=== PATIENT | male | born 1940 | race Caucasian/White ===

== ENCOUNTER 2017-08-01 15:56 | Emergency (ER) | payer MEDICARE, MEDICAID ==
[~2017-08-01] VITALS: Ht 180.3 cm; Wt 79.4 kg
[2017-08-01 16:33] VITALS: BP 169/89
[2017-08-01] MEDS ORDERED: HYDROcodone-ACET 10/325MG TAB PO ONE (17:15)
[2017-08-01] MEDS ORDERED: NEOMYCIN-BACITRACIN-POLYM UNITDOSE PKG TOP OINT TOP ONE (17:15)
== END 2017-08-01 17:50 | disposition home or self-care (01) ==
LOC: ER 15:56 → EDBD 15:56 → ER 17:50
DX: S11.90XA Unspecified open wound of unspecified part of neck, initial encounter (principal); I10 Essential (primary) hypertension; R10.9 Unspecified abdominal pain; R42 Dizziness and giddiness; Z79.01 Long term (current) use of anticoagulants; Z86.711 Personal history of pulmonary embolism; V43.52XA Car driver injured in collision with other type car in traffic accident, initial encounter; Y93.89 Activity, other specified; Y92.89 Other specified places as the place of occurrence of the external cause; Y99.8 Other external cause status
CPT/HCPCS: 70450; 72125

== ENCOUNTER 2017-08-04 14:36 | Emergency (ER) | payer MEDICARE, MEDICAID ==
[~2017-08-04] VITALS: Ht 170.2 cm; Wt 78.0 kg
[2017-08-04 15:07] VITALS: BP 136/73
== END 2017-08-04 15:56 | disposition home or self-care (01) ==
LOC: ER 14:52
DX: S40.212D Abrasion of left shoulder, subsequent encounter (principal); S80.811D Abrasion, right lower leg, subsequent encounter; I10 Essential (primary) hypertension; V89.2XXD Person injured in unspecified motor-vehicle accident, traffic, subsequent encounter

== ENCOUNTER 2017-11-16 09:19 | Day surgery (SDC) | payer MEDICARE, MEDICAID ==
[2017-11-15 11:37] LABS: Basophils # (auto) 0 uL; Basophils % (auto) 0.8 % (0.0-2.0); Eosinophils # (auto) 0.1 uL; Eosinophils % (auto) 1.6 % (0.0-7.0); Hematocrit 43.3 % (41.0-53.0); Hemoglobin 14.7 g/dL (13.5-17.5); Lymphocytes # (auto) 1.2 uL; Lymphocytes % (auto) 22.7 % (10.0-50.0); Mean Corpuscular Volume 91.1 fL (80.0-100.0); Monocytes # (auto) 0.5 uL; Neutrophils # (auto) 3.4 uL; Neutrophils % (auto) 64.9 % (37.0-80.0); Nucleated Red Blood Cells % 0.1 %; Platelet Count (auto) 223 10^3/uL (140-450); Red Blood Cells 4.75 10^6/uL (4.5-5.90); Red Cell Distribution Width 13.9 % (11.8-14.3); White Blood Cell 5.2 10^3/uL (4.4-10.8)
[2017-11-15 11:52] LABS: INR 1.36 (0.9-1.15); Partial Thromboplastin Time 39.4 sec (22.64-33.71); Prothrombin Time 14.9 sec (9.37-12.3)
[2017-11-15 12:00] LABS: Albumin 3.6 g/dL (3.4-5.0); BUN/Creatinine Ratio 16.1; Bilirubin, Total 0.7 mg/dL (0.2-1.0); Calcium 8.6 mg/dL (8.5-10.1); Total Protein 7.7 g/dL (6.4-8.2)
[2017-11-15 12:05] LABS: Urine Bacteria NONE SEEN /hpf (None Seen); Urine Blood TRACE /uL (Negative); Urine Specific Gravity 1.014 (1.001-1.035); Urine WBC <1 /hpf (0 - 3)
[~2017-11-16] VITALS: Ht 170.2 cm; Wt 78.9 kg
[~2017-11-16 09:19] MED LIST: CARV6.2551 PO; CHOL20007 PO; RIVA20TA PO; TRIA50CA38 PO; VER40T PO
[2017-11-16] MEDS ORDERED: ceFAZolin 1GM/50ML 50 ML IV ONE (09:30)
[2017-11-16] MEDS ORDERED: BUPIVACAINE 0.75% INJ 10ML MPV SDV IJ ONE (11:36)
[2017-11-16] MEDS ORDERED: NEOMYCIN-BACITRACIN-POLYM 15GM TOP OINT TOP ONE (11:36)
[2017-11-16] MEDS ORDERED: fentaNYL CITRATE 100 MCG/2 ML VL ONE (12:08)
[2017-11-16] MEDS ORDERED: MIDAZOLAM HCL 1MG/1ML-2 ML VIAL ONE (12:08)
[2017-11-16] MEDS ORDERED: KETOROLAC TROMETH 30 MG/ML 1ML VIAL ONE (12:24)
[2017-11-16] MEDS ORDERED: PROPOFOL 10 MG/ML 20 ML IV ONE (12:24)
[2017-11-16] MEDS ORDERED: DEXAMETHASONE SOD PHOS 10MG/1ML VIAL INJ ONE (12:24)
[2017-11-16] MEDS ORDERED: hydrALAZINE HCL 20 MG/ML VL IV PRN (12:30)
[2017-11-16] MEDS ORDERED: ONDANSETRON HCL 4 MG/2 ML VIAL IV ONE (12:30)
[2017-11-16] MEDS ORDERED: MIDAZOLAM HCL 1MG/1ML-2 ML VIAL IV PRN (12:30)
[2017-11-16] MEDS ORDERED: KETOROLAC TROMETH 30 MG/ML 1ML VIAL IV ONE (12:30)
[2017-11-16] MEDS ORDERED: LABETALOL HCL 5 MG/ML 4ML SYRINGE IV PRN (12:30)
[2017-11-16] MEDS ORDERED: MORPHINE SULFATE 4 MG/ML SYR/VIAL IV PRN (12:30)
[2017-11-16] MEDS ORDERED: ePHEDrine SULFATE 50 MG/ML AMP IV PRN (12:30)
[2017-11-16 14:15] VITALS: BP 139/78
== END 2017-11-16 14:15 | disposition home or self-care (01) ==
LOC: SUR 09:19
PROVIDERS: ATTEND Podiatrist Foot & Ankle Surgery
DX: M20.42 Other hammer toe(s) (acquired), left foot (principal); M20.41 Other hammer toe(s) (acquired), right foot; L84 Corns and callosities; M19.072 Primary osteoarthritis, left ankle and foot; M19.071 Primary osteoarthritis, right ankle and foot; E66.9 Obesity, unspecified; Z87.891 Personal history of nicotine dependence; C61 Malignant neoplasm of prostate; I10 Essential (primary) hypertension; I49.9 Cardiac arrhythmia, unspecified; I48.91 Unspecified atrial fibrillation; M81.0 Age-related osteoporosis without current pathological fracture; E03.9 Hypothyroidism, unspecified
CPT/HCPCS: 28285; 36415; 80053; 81001; 85025; 85610; 85730; J0690; J1100; J1885; J2250; J2704; J3010; J3490

== ENCOUNTER 2022-01-06 14:28 | Inpatient (IN) | payer MEDICARE, MEDICAID ==
[~2022-01-06] VITALS: Ht 170.2 cm; Wt 79.0 kg
[~2022-01-06 14:28] MED LIST changes: +DRON400T PO; -TRIA50CA38 PO
[2022-01-06] MEDS ORDERED: SODIUM CHLORIDE 0.9% 1,000 ML IV ONE (15:45)
[2022-01-06 17:23] LABS: Basophils # (auto) 0 10 ^3/uL (0-0.2); Basophils % (auto) 0.2 % (0.0-2.0); Eosinophils # (auto) 0 10 ^3/uL (0-0.8); Eosinophils % (auto) 0.1 % (0.0-7.0); Hematocrit 37.7 % (41.0-53.0); Lymphocytes # (auto) 1.1 10 ^3/uL (0.4-5.4); Lymphocytes % (auto) 6.4 % (10.0-50.0); Mean Corpuscular Hemoglobin 31.9 pg (28.0-32.0); Mean Corpuscular Hgb Conc. 34.4 g/dL (32.0-36.0); Mean Corpuscular Volume 92.7 fL (80.0-100.0); Monocytes # (auto) 1.3 10 ^3/uL (0-1.3); Monocytes % (auto) 7.8 % (0.0-12.0); Neutrophils # (auto) 14.4 10 ^3/uL (1.6-8.6); Neutrophils % (auto) 85.5 % (37.0-80.0); Red Blood Cells 4.07 10^6/uL (4.5-5.90); Red Cell Distribution Width 13.7 % (11.8-14.3); White Blood Cell 16.8 10^3/uL (4.4-10.8)
[2022-01-06 17:37] LABS: Albumin 2.6 g/dL (3.4-5.0); BUN/Creatinine Ratio 21.1; Calcium 8.6 mg/dL (8.5-10.1); Potassium 4.1 mmol/L (3.5-5.1)
[2022-01-06 17:40] LABS: Bilirubin, Total 1.3 mg/dL (0.2-1.0); Total Protein 7.3 g/dL (6.4-8.2)
[2022-01-06] MEDS ORDERED: ONDANSETRON HCL 4 MG/2 ML VIAL IV PRN (22:45)
[2022-01-06] MEDS ORDERED: SODIUM CHLORIDE 0.9% 1,000 ML IV SCH (22:45)
[2022-01-06] MEDS ORDERED: cefTRIAXone 1GM/50ML D5W 50 ML IV ONE (22:45)
[2022-01-06] MEDS ORDERED: DOCUSATE SOD 100 MG CAP PO PRN (22:45)
[2022-01-06] MEDS ORDERED: IOHEXOL 350 MG/ML 100ML IJ ONE (22:55)
[2022-01-06] MEDS ORDERED: NITROGLYCERIN 0.4 MG SL TAB SL PRN (23:45)
[2022-01-06] MEDS ORDERED: MORPHINE SULFATE INJ 2 MG/ml SYRG IV PRN (23:45)
[2022-01-07] VITALS (7 sets, daily range): BP systolic 106–137; BP diastolic 53–72
[2022-01-07] MEDS: HYDROcodone-ACET 5/325MG TAB PO PRN ×3 (02:24→20:01)
[2022-01-07 06:43] LABS: Basophils # (auto) 0 10 ^3/uL (0-0.2); Basophils % (auto) 0.2 % (0.0-2.0); Eosinophils # (auto) 0.1 10 ^3/uL (0-0.8); Eosinophils % (auto) 0.6 % (0.0-7.0); Hematocrit 35.8 % (41.0-53.0); Hemoglobin 12.7 g/dL (13.5-17.5); Lymphocytes # (auto) 0.9 10 ^3/uL (0.4-5.4); Lymphocytes % (auto) 5.9 % (10.0-50.0); Mean Corpuscular Hemoglobin 32.6 pg (28.0-32.0); Mean Corpuscular Hgb Conc. 35.4 g/dL (32.0-36.0); Mean Corpuscular Volume 92.2 fL (80.0-100.0); Monocytes # (auto) 1.3 10 ^3/uL (0-1.3); Neutrophils # (auto) 13.7 10 ^3/uL (1.6-8.6); Neutrophils % (auto) 85.3 % (37.0-80.0); Red Blood Cells 3.88 10^6/uL (4.5-5.90); Red Cell Distribution Width 13.7 % (11.8-14.3); White Blood Cell 16.1 10^3/uL (4.4-10.8)
[2022-01-07 07:02] LABS: Albumin 2.4 g/dL (3.4-5.0); Calcium 8.6 mg/dL (8.5-10.1); Potassium 3.9 mmol/L (3.5-5.1)
[2022-01-07 07:03] LABS: BUN/Creatinine Ratio 25.6
[2022-01-07 07:07] LABS: Bilirubin, Total 1.3 mg/dL (0.2-1.0); Total Protein 6.9 g/dL (6.4-8.2)
[2022-01-07] MEDS ORDERED: cefTRIAXone 1GM/50ML D5W 50 ML IV SCH (09:00)
[2022-01-07 09:19] LABS: Albumin 2.3 g/dL (3.4-5.0); Calcium 8.3 mg/dL (8.5-10.1); Potassium 4.4 mmol/L (3.5-5.1)
[2022-01-07 09:23] LABS: BUN/Creatinine Ratio 26.6; Bilirubin, Total 1.2 mg/dL (0.2-1.0); Total Protein 7.2 g/dL (6.4-8.2)
[2022-01-07 09:49] LABS: Albumin 2.2 g/dL (3.4-5.0); Bilirubin, Direct 0.5 mg/dL (0-0.2)
[2022-01-07 09:52] LABS: Bilirubin, Total 1.2 mg/dL (0.2-1.0); Total Protein 7.1 g/dL (6.4-8.2)
[2022-01-07] MEDS ORDERED: CARVEDILOL 12.5 MG TAB PO SCH (10:00)
[2022-01-07] MEDS ORDERED: ASCORBIC ACID 500 MG TAB PO SCH (10:00)
[2022-01-07] MEDS ORDERED: ZINC SULFATE 220mg CAP or TAB PO SCH (10:00)
[2022-01-07] MEDS ORDERED: ENOXAPARIN SOD 80 MG/0.8ML SYRINGE SC SCH (10:00)
[2022-01-07] MEDS: CARVEDILOL 3.125 MG TAB PO SCH ×2 (10:00→22:46)
[2022-01-07] MEDS ORDERED: AZITHROMYCIN 500MG/ 250ML 250 ML IV ONE (10:15)
[2022-01-07] MEDS: CHOLECALCIFEROL (VITD3) 2,000 UNIT CAP/TAB PO SCH (10:42)
[2022-01-07] MEDS: DRONEDARONE HCL 400 MG TAB PO SCH ×2 (10:42→22:45)
[2022-01-07] MEDS: MULTIPLE VITAMIN TAB PO SCH (10:42)
[2022-01-07] MEDS: ASPirin 81 mg TAB PO SCH (10:43)
[2022-01-07] MEDS: VERAPAMIL HCL 40 MG TAB PO SCH (10:45)
[2022-01-07 12:34] LABS: INR 1.44 (0.9-1.15); Partial Thromboplastin Time 47.6 sec (23.6-33.0)
[2022-01-07] MEDS ORDERED: FUROSEMIDE 20 MG/2 ML VIAL IV ONE (15:30)
[2022-01-07] MEDS: DOXYCYCLINE 100MG/250ML 250 ML IV SCH (16:16)
[2022-01-07] MEDS: PIPERACILLIN-TAZOB 3.375GM 100 ML IV SCH (18:15)
[2022-01-08] VITALS (7 sets, daily range): BP systolic 112–159; BP diastolic 57–83
[2022-01-08] MEDS: DOXYCYCLINE 100MG/250ML 250 ML IV SCH ×2 (03:29→15:45)
[2022-01-08] MEDS: PIPERACILLIN-TAZOB 3.375GM 100 ML IV SCH ×5 (05:39→23:59)
[2022-01-08] MEDS: HYDROcodone-ACET 5/325MG TAB PO PRN ×2 (05:43→19:53)
[2022-01-08 07:13] LABS: Basophils # (auto) 0 10 ^3/uL (0-0.2); Basophils % (auto) 0.2 % (0.0-2.0); Eosinophils # (auto) 0.2 10 ^3/uL (0-0.8); Eosinophils % (auto) 1.4 % (0.0-7.0); Hematocrit 37.2 % (41.0-53.0); Lymphocytes % (auto) 5.8 % (10.0-50.0); Mean Corpuscular Hemoglobin 32.5 pg (28.0-32.0); Mean Corpuscular Volume 92.8 fL (80.0-100.0); Monocytes # (auto) 1.6 10 ^3/uL (0-1.3); Monocytes % (auto) 9.1 % (0.0-12.0); Neutrophils # (auto) 14.4 10 ^3/uL (1.6-8.6); Neutrophils % (auto) 83.5 % (37.0-80.0); Red Blood Cells 4.01 10^6/uL (4.5-5.90); Red Cell Distribution Width 13.5 % (11.8-14.3); White Blood Cell 17.3 10^3/uL (4.4-10.8)
[2022-01-08 07:24] LABS: INR 1.27 (0.9-1.15); Partial Thromboplastin Time 44.4 sec (23.6-33.0)
[2022-01-08 07:27] LABS: Anion Gap 6 (5-15); Blood Urea Nitrogen 40 mg/dL (7-18); Calcium 8.7 mg/dL (8.5-10.1); Carbon Dioxide 26 mmol/L (21-32); Chloride 101 mmol/L (98-107); Glucose 155 mg/dL (74-106); Sodium 133 mmol/L (136-145)
[2022-01-08 07:35] LABS: BUN/Creatinine Ratio 34.2; GFR African American 77 mL/min; GFR Non-African American 63 mL/min
[2022-01-08 07:37] LABS: CRP High Sensitivity > 19 mg/dL (< 0.3)
[2022-01-08] MEDS ORDERED: IPRATROPIUM BROM 0.5 MG/2.5ML INH SOL NEB ONE (09:00)
[2022-01-08] MEDS ORDERED: ALBUTEROL SULF 2.5 MG/0.5ML(0.5%) NEB SOLN NEB ONE (09:00)
[2022-01-08] MEDS ORDERED: AZITHROMYCIN 500MG/ 250ML 250 ML IV SCH (10:00)
[2022-01-08] MEDS: CARVEDILOL 3.125 MG TAB PO SCH ×2 (10:00→22:44)
[2022-01-08] MEDS: VERAPAMIL HCL 40 MG TAB PO SCH (10:00)
[2022-01-08] MEDS: ASPirin 81 mg TAB PO SCH (11:28)
[2022-01-08] MEDS: CHOLECALCIFEROL (VITD3) 2,000 UNIT CAP/TAB PO SCH (11:28)
[2022-01-08] MEDS: MULTIPLE VITAMIN TAB PO SCH (11:28)
[2022-01-08] MEDS: DRONEDARONE HCL 400 MG TAB PO SCH ×2 (11:29→22:45)
[2022-01-08] MEDS: IPRATROPIUM BROM 0.5 MG/2.5ML INH SOL NEB SCH ×2 (13:52→18:43)
[2022-01-09] VITALS (9 sets, daily range): BP systolic 105–123; BP diastolic 58–78
[2022-01-09] MEDS: IPRATROPIUM BROM 0.5 MG/2.5ML INH SOL NEB SCH ×4 (00:18→18:00)
[2022-01-09] MEDS: DOXYCYCLINE 100MG/250ML 250 ML IV SCH ×2 (04:03→15:29)
[2022-01-09 05:44] LABS: Basophils # (auto) 0 10 ^3/uL (0-0.2); Basophils % (auto) 0.2 % (0.0-2.0); Eosinophils # (auto) 0.3 10 ^3/uL (0-0.8); Eosinophils % (auto) 2.1 % (0.0-7.0); Hematocrit 34.2 % (41.0-53.0); Hemoglobin 11.9 g/dL (13.5-17.5); Lymphocytes # (auto) 0.9 10 ^3/uL (0.4-5.4); Lymphocytes % (auto) 6.8 % (10.0-50.0); Mean Corpuscular Hemoglobin 32.1 pg (28.0-32.0); Mean Corpuscular Hgb Conc. 34.8 g/dL (32.0-36.0); Mean Corpuscular Volume 92.4 fL (80.0-100.0); Monocytes # (auto) 1.3 10 ^3/uL (0-1.3); Monocytes % (auto) 10.4 % (0.0-12.0); Neutrophils # (auto) 10.5 10 ^3/uL (1.6-8.6); Neutrophils % (auto) 80.5 % (37.0-80.0); Red Cell Distribution Width 13.5 % (11.8-14.3)
[2022-01-09 06:07] LABS: Potassium 3.6 mmol/L (3.5-5.1)
[2022-01-09 06:21] LABS: BUN/Creatinine Ratio 31.3; Bilirubin, Total 1.1 mg/dL (0.2-1.0); Calcium 8.3 mg/dL (8.5-10.1); Total Protein 6.6 g/dL (6.4-8.2)
[2022-01-09] MEDS: PIPERACILLIN-TAZOB 3.375GM 100 ML IV SCH ×5 (06:24→23:56)
[2022-01-09] MEDS: ALBUTEROL SULF 2.5 MG/0.5ML(0.5%) NEB SOLN NEB PRN (07:08)
[2022-01-09] MEDS: ASPirin 81 mg TAB PO SCH ×2 (09:59→10:00)
[2022-01-09] MEDS ORDERED: FUROSEMIDE 40 MG/4 ML VIAL IV ONE (10:15)
[2022-01-09] MEDS: MULTIPLE VITAMIN TAB PO SCH (10:16)
[2022-01-09] MEDS: VERAPAMIL HCL 40 MG TAB PO SCH (10:16)
[2022-01-09] MEDS: CHOLECALCIFEROL (VITD3) 2,000 UNIT CAP/TAB PO SCH (10:16)
[2022-01-09] MEDS: CARVEDILOL 3.125 MG TAB PO SCH ×2 (10:16→22:05)
[2022-01-09] MEDS: DRONEDARONE HCL 400 MG TAB PO SCH ×2 (10:17→22:05)
[2022-01-10] MEDS: ALBUTEROL SULF 2.5 MG/0.5ML(0.5%) NEB SOLN NEB PRN ×2 (00:29→18:14)
[2022-01-10] MEDS: IPRATROPIUM BROM 0.5 MG/2.5ML INH SOL NEB SCH ×4 (00:29→18:15)
[2022-01-10] MEDS ORDERED: guaiFENesin-DM 100/10mg/5ml SYR PO PRN (00:30)
[2022-01-10] MEDS: DOXYCYCLINE 100MG/250ML 250 ML IV SCH ×2 (02:53→15:30)
[2022-01-10 05:00] VITALS: BP 113/64
[2022-01-10] MEDS: PIPERACILLIN-TAZOB 3.375GM 100 ML IV SCH ×4 (05:48→23:10)
[2022-01-10 08:30] VITALS: BP 98/67
[2022-01-10 09:00] VITALS: BP 101/71
[2022-01-10] MEDS: DRONEDARONE HCL 400 MG TAB PO SCH ×2 (10:07→21:58)
[2022-01-10] MEDS: MULTIPLE VITAMIN TAB PO SCH (10:08)
[2022-01-10] MEDS: CHOLECALCIFEROL (VITD3) 2,000 UNIT CAP/TAB PO SCH (10:08)
[2022-01-10] MEDS: ASPirin 81 mg TAB PO SCH (10:09)
[2022-01-10] MEDS: VERAPAMIL HCL 40 MG TAB PO SCH (10:09)
[2022-01-10] MEDS: CARVEDILOL 3.125 MG TAB PO SCH ×2 (10:10→21:59)
[2022-01-10 13:00] VITALS: BP 102/64
[2022-01-10 17:00] VITALS: BP 96/72
[2022-01-10] MEDS ORDERED: ENOXAPARIN SOD 40 MG/0.4 ML SYRINGE SC ONE (18:00)
[2022-01-10 22:00] VITALS: BP 116/72
[2022-01-11] VITALS (14 sets, daily range): BP systolic 95–122; BP diastolic 57–80
[2022-01-11] MEDS: IPRATROPIUM BROM 0.5 MG/2.5ML INH SOL NEB SCH ×4 (01:14→19:42)
[2022-01-11] MEDS: DOXYCYCLINE 100MG/250ML 250 ML IV SCH ×2 (03:24→16:00)
[2022-01-11] MEDS: PIPERACILLIN-TAZOB 3.375GM 100 ML IV SCH ×3 (05:13→20:00)
[2022-01-11] MEDS: MULTIPLE VITAMIN TAB PO SCH (09:35)
[2022-01-11] MEDS: CHOLECALCIFEROL (VITD3) 2,000 UNIT CAP/TAB PO SCH (09:35)
[2022-01-11] MEDS: VERAPAMIL HCL 40 MG TAB PO SCH (09:35)
[2022-01-11] MEDS: CARVEDILOL 3.125 MG TAB PO SCH ×2 (09:36→22:10)
[2022-01-11] MEDS: ASPirin 81 mg TAB PO SCH (09:36)
[2022-01-11] MEDS: DRONEDARONE HCL 400 MG TAB PO SCH ×3 (09:36→22:12)
[2022-01-11] MEDS ORDERED: ENOXAPARIN SOD 40 MG/0.4 ML SYRINGE SC SCH (10:00)
[2022-01-11 10:26] LABS: Basophils # (auto) 0 10 ^3/uL (0-0.2); Basophils % (auto) 0.1 % (0.0-2.0); Eosinophils # (auto) 0.1 10 ^3/uL (0-0.8); Eosinophils % (auto) 0.6 % (0.0-7.0); Hemoglobin 12.3 g/dL (13.5-17.5); Lymphocytes # (auto) 0.9 10 ^3/uL (0.4-5.4); Mean Corpuscular Hemoglobin 31.4 pg (28.0-32.0); Mean Corpuscular Hgb Conc. 34.1 g/dL (32.0-36.0); Monocytes # (auto) 1.3 10 ^3/uL (0-1.3); Monocytes % (auto) 10.1 % (0.0-12.0); Neutrophils # (auto) 10.9 10 ^3/uL (1.6-8.6); Neutrophils % (auto) 82.2 % (37.0-80.0); Red Blood Cells 3.91 10^6/uL (4.5-5.90); Red Cell Distribution Width 13.5 % (11.8-14.3); White Blood Cell 13.2 10^3/uL (4.4-10.8)
[2022-01-11 10:48] LABS: Albumin 1.9 g/dL (3.4-5.0); Calcium 8.6 mg/dL (8.5-10.1); Potassium 3.2 mmol/L (3.5-5.1)
[2022-01-11 10:51] LABS: Bilirubin, Total 1.4 mg/dL (0.2-1.0); Total Protein 6.9 g/dL (6.4-8.2)
[2022-01-11] MEDS ORDERED: POTASSIUM CHL 20 Meq TABLET PO ONE (14:00)
[2022-01-11 18:27] LABS: INR 1.28 (0.9-1.15); Partial Thromboplastin Time 35.6 sec (23.6-33.0)
[2022-01-11] MEDS: ALBUTEROL SULF 2.5 MG/0.5ML(0.5%) NEB SOLN NEB PRN (19:42)
[2022-01-11] MEDS ORDERED: guaiFENesin-DM 100/10mg/5ml SYR PO PRN (20:00)
[2022-01-11] MEDS: guaiFENesin-DM 100/10mg/5ml SYR PO PRN (23:33)
[2022-01-12] MEDS: IPRATROPIUM BROM 0.5 MG/2.5ML INH SOL NEB SCH ×4 (00:57→19:23)
[2022-01-12] MEDS: ALBUTEROL SULF 2.5 MG/0.5ML(0.5%) NEB SOLN NEB PRN ×2 (00:57→19:23)
[2022-01-12] MEDS: PIPERACILLIN-TAZOB 3.375GM 100 ML IV SCH ×6 (01:24→23:45)
[2022-01-12 05:00] VITALS: BP 104/63
[2022-01-12] MEDS: DOXYCYCLINE 100MG/250ML 250 ML IV SCH ×2 (05:52→14:53)
[2022-01-12 09:00] VITALS: BP 125/59
[2022-01-12] MEDS: MULTIPLE VITAMIN TAB PO SCH (09:49)
[2022-01-12] MEDS: CHOLECALCIFEROL (VITD3) 2,000 UNIT CAP/TAB PO SCH (09:49)
[2022-01-12] MEDS: CARVEDILOL 3.125 MG TAB PO SCH ×2 (09:50→22:15)
[2022-01-12 11:39] LABS: Basophils # (auto) 0 10 ^3/uL (0-0.2); Basophils % (auto) 0.4 % (0.0-2.0); Eosinophils # (auto) 0.1 10 ^3/uL (0-0.8); Eosinophils % (auto) 1.6 % (0.0-7.0); Hematocrit 36.3 % (41.0-53.0); Hemoglobin 12.3 g/dL (13.5-17.5); Lymphocytes # (auto) 0.8 10 ^3/uL (0.4-5.4); Lymphocytes % (auto) 10.6 % (10.0-50.0); Mean Corpuscular Hemoglobin 31.2 pg (28.0-32.0); Mean Corpuscular Hgb Conc. 33.8 g/dL (32.0-36.0); Mean Corpuscular Volume 92.3 fL (80.0-100.0); Monocytes # (auto) 0.9 10 ^3/uL (0-1.3); Monocytes % (auto) 11.3 % (0.0-12.0); Neutrophils % (auto) 76.1 % (37.0-80.0); Nucleated Red Blood Cells % 0.1 %; Red Blood Cells 3.93 10^6/uL (4.5-5.90); Red Cell Distribution Width 13.7 % (11.8-14.3); White Blood Cell 7.9 10^3/uL (4.4-10.8)
[2022-01-12 11:47] LABS: INR 1.27 (0.9-1.15)
[2022-01-12 12:07] LABS: Calcium 8.5 mg/dL (8.5-10.1); Potassium 3.2 mmol/L (3.5-5.1)
[2022-01-12 12:13] LABS: Albumin 1.8 g/dL (3.4-5.0); BUN/Creatinine Ratio 20.7; Bilirubin, Total 0.8 mg/dL (0.2-1.0); Magnesium 2.4 mg/dL (1.6-2.6); Total Protein 6.5 g/dL (6.4-8.2)
[2022-01-12 13:00] VITALS: BP 117/66
[2022-01-12] MEDS: DRONEDARONE HCL 400 MG TAB PO SCH ×2 (14:47→21:41)
[2022-01-12] MEDS: VERAPAMIL HCL 40 MG TAB PO SCH (14:48)
[2022-01-12] MEDS ORDERED: POTASSIUM CHL 20 Meq TABLET PO ONE (15:30)
[2022-01-12 17:00] VITALS: BP 109/62
[2022-01-12] MEDS: ACETAMINOPHEN 325 MG TAB PO PRN (21:41)
[2022-01-12 22:00] VITALS: BP 125/76
[2022-01-13] MEDS: IPRATROPIUM BROM 0.5 MG/2.5ML INH SOL NEB SCH ×4 (00:38→18:33)
[2022-01-13] MEDS: DOXYCYCLINE 100MG/250ML 250 ML IV SCH ×2 (03:55→17:04)
[2022-01-13 05:00] VITALS: BP 114/69
[2022-01-13] MEDS: ACETAMINOPHEN 325 MG TAB PO PRN ×3 (05:00→21:18)
[2022-01-13] MEDS: ALBUTEROL SULF 2.5 MG/0.5ML(0.5%) NEB SOLN NEB PRN ×3 (05:49→18:33)
[2022-01-13 06:01] LABS: BUN/Creatinine Ratio 18.4; Calcium 8.5 mg/dL (8.5-10.1); Potassium 3.3 mmol/L (3.5-5.1)
[2022-01-13 06:09] LABS: Basophils # (auto) 0 10 ^3/uL (0-0.2); Basophils % (auto) 0.3 % (0.0-2.0); Eosinophils # (auto) 0.1 10 ^3/uL (0-0.8); Eosinophils % (auto) 1.9 % (0.0-7.0); Hematocrit 34.8 % (41.0-53.0); Hemoglobin 11.9 g/dL (13.5-17.5); Lymphocytes # (auto) 1.1 10 ^3/uL (0.4-5.4); Lymphocytes % (auto) 13.6 % (10.0-50.0); Mean Corpuscular Hemoglobin 31.2 pg (28.0-32.0); Mean Corpuscular Hgb Conc. 34.1 g/dL (32.0-36.0); Mean Corpuscular Volume 91.7 fL (80.0-100.0); Monocytes # (auto) 1.1 10 ^3/uL (0-1.3); Monocytes % (auto) 13.5 % (0.0-12.0); Neutrophils # (auto) 5.6 10 ^3/uL (1.6-8.6); Neutrophils % (auto) 70.7 % (37.0-80.0); Red Cell Distribution Width 13.9 % (11.8-14.3); White Blood Cell 7.9 10^3/uL (4.4-10.8)
[2022-01-13] MEDS: PIPERACILLIN-TAZOB 3.375GM 100 ML IV SCH ×4 (06:54→23:49)
[2022-01-13 09:00] VITALS: BP 102/64
[2022-01-13] MEDS ORDERED: POTASSIUM CHL 20 Meq TABLET PO ONE (10:30)
[2022-01-13] MEDS: CARVEDILOL 3.125 MG TAB PO SCH ×2 (11:28→21:17)
[2022-01-13] MEDS: MULTIPLE VITAMIN TAB PO SCH (11:28)
[2022-01-13] MEDS: CHOLECALCIFEROL (VITD3) 2,000 UNIT CAP/TAB PO SCH (11:28)
[2022-01-13] MEDS: DRONEDARONE HCL 400 MG TAB PO SCH ×2 (11:29→21:17)
[2022-01-13] MEDS: VERAPAMIL HCL 40 MG TAB PO SCH (12:46)
[2022-01-13 13:00] VITALS: BP 121/62
[2022-01-13 17:00] VITALS: BP 107/69
[2022-01-13] MEDS: guaiFENesin-DM 100/10mg/5ml SYR PO PRN (21:19)
[2022-01-13 22:00] VITALS: BP 110/54
[2022-01-14] MEDS: IPRATROPIUM BROM 0.5 MG/2.5ML INH SOL NEB SCH ×5 (00:56→23:42)
[2022-01-14] MEDS: ALBUTEROL SULF 2.5 MG/0.5ML(0.5%) NEB SOLN NEB PRN ×3 (00:56→23:42)
[2022-01-14] MEDS: DOXYCYCLINE 100MG/250ML 250 ML IV SCH ×2 (03:22→16:53)
[2022-01-14 05:00] VITALS: BP 106/58
[2022-01-14] MEDS: PIPERACILLIN-TAZOB 3.375GM 100 ML IV SCH ×3 (05:43→18:25)
[2022-01-14] MEDS ORDERED: POTASSIUM CHL 20 Meq TABLET PO ONE (07:30)
[2022-01-14 08:41] VITALS: BP 102/62
[2022-01-14] MEDS: CARVEDILOL 3.125 MG TAB PO SCH ×2 (10:00→20:24)
[2022-01-14] MEDS: VERAPAMIL HCL 40 MG TAB PO SCH (10:00)
[2022-01-14 10:13] VITALS: BP 102/62
[2022-01-14] MEDS: MULTIPLE VITAMIN TAB PO SCH (10:15)
[2022-01-14] MEDS: DRONEDARONE HCL 400 MG TAB PO SCH ×2 (10:16→20:25)
[2022-01-14] MEDS: CHOLECALCIFEROL (VITD3) 2,000 UNIT CAP/TAB PO SCH (10:21)
[2022-01-14] MEDS ORDERED: AMOXTAB OR (12:39)
[2022-01-14] MEDS ORDERED: DOXY-286 PO (12:39)
[2022-01-14] MEDS ORDERED: ALB5IS NEB (12:39)
[2022-01-14 13:00] VITALS: BP 112/58
[2022-01-14 17:00] VITALS: BP 116/63
[2022-01-14] MEDS: guaiFENesin-DM 100/10mg/5ml SYR PO PRN (20:25)
[2022-01-14 22:00] VITALS: BP 111/63
[2022-01-15] MEDS: PIPERACILLIN-TAZOB 3.375GM 100 ML IV SCH ×3 (00:15→11:42)
[2022-01-15] MEDS: DOXYCYCLINE 100MG/250ML 250 ML IV SCH (03:17)
[2022-01-15] MEDS: guaiFENesin-DM 100/10mg/5ml SYR PO PRN (03:17)
[2022-01-15 05:00] VITALS: BP 106/66
[2022-01-15 06:10] LABS: Basophils # (auto) 0.1 10 ^3/uL (0-0.2); Basophils % (auto) 0.6 % (0.0-2.0); Eosinophils # (auto) 0.2 10 ^3/uL (0-0.8); Eosinophils % (auto) 1.7 % (0.0-7.0); Hematocrit 34.3 % (41.0-53.0); Hemoglobin 11.9 g/dL (13.5-17.5); Lymphocytes # (auto) 1.1 10 ^3/uL (0.4-5.4); Lymphocytes % (auto) 9.9 % (10.0-50.0); Mean Corpuscular Hemoglobin 31.6 pg (28.0-32.0); Mean Corpuscular Hgb Conc. 34.7 g/dL (32.0-36.0); Mean Corpuscular Volume 91.2 fL (80.0-100.0); Monocytes # (auto) 1.1 10 ^3/uL (0-1.3); Monocytes % (auto) 9.2 % (0.0-12.0); Neutrophils # (auto) 9.1 10 ^3/uL (1.6-8.6); Neutrophils % (auto) 78.6 % (37.0-80.0); Nucleated Red Blood Cells % 0.1 %; Red Blood Cells 3.76 10^6/uL (4.5-5.90); Red Cell Distribution Width 13.9 % (11.8-14.3); White Blood Cell 11.5 10^3/uL (4.4-10.8)
[2022-01-15] MEDS: IPRATROPIUM BROM 0.5 MG/2.5ML INH SOL NEB SCH ×2 (06:14→13:47)
[2022-01-15] MEDS: ALBUTEROL SULF 2.5 MG/0.5ML(0.5%) NEB SOLN NEB PRN ×2 (06:14→13:47)
[2022-01-15 06:26] LABS: BUN/Creatinine Ratio 18.6; Calcium 8.5 mg/dL (8.5-10.1); Potassium 3.7 mmol/L (3.5-5.1)
[2022-01-15 09:00] VITALS: BP 101/50
[2022-01-15] MEDS: VERAPAMIL HCL 40 MG TAB PO SCH (09:53)
[2022-01-15] MEDS: CARVEDILOL 3.125 MG TAB PO SCH (09:54)
[2022-01-15] MEDS: MULTIPLE VITAMIN TAB PO SCH (09:56)
[2022-01-15] MEDS: CHOLECALCIFEROL (VITD3) 2,000 UNIT CAP/TAB PO SCH (09:57)
[2022-01-15] MEDS: DRONEDARONE HCL 400 MG TAB PO SCH (11:42)
[2022-01-15 13:00] VITALS: BP 113/67
[2022-01-15 14:28] VITALS: BP 101/50
== END 2022-01-15 15:00 | disposition home or self-care (01) | DRG 177 ==
LOC: ER 14:28 → EDBD 14:28 → TELE 23:41 → TELE-WESTW 01-07 01:25
PROVIDERS: ADMIT Nurse Practitioner Family; ATTEND Internal Medicine
PROC: 0W9B3ZX Drainage of Left Pleural Cavity, Percutaneous Approach, Diagnostic (ICD-10-PCS; 2022-01-08)
PROC: 0W9B3ZX Drainage of Left Pleural Cavity, Percutaneous Approach, Diagnostic (ICD-10-PCS; principal; 2022-01-09)
PROC: 0W9B30Z Drainage of Left Pleural Cavity with Drainage Device, Percutaneous Approach (ICD-10-PCS; 2022-01-11)
DX: J86.9 Pyothorax without fistula (principal); J96.01 Acute respiratory failure with hypoxia; J18.9 Pneumonia, unspecified organism; D68.69 Other thrombophilia; I31.3 Pericardial effusion (noninflammatory); J98.11 Atelectasis; I13.0 Hypertensive heart and chronic kidney disease with heart failure and stage 1 through stage 4 chronic kidney disease, or unspecified chronic kidney disease; I48.92 Unspecified atrial flutter; J91.8 Pleural effusion in other conditions classified elsewhere; I50.32 Chronic diastolic (congestive) heart failure; I27.20 Pulmonary hypertension, unspecified; E88.09 Other disorders of plasma-protein metabolism, not elsewhere classified; N18.9 Chronic kidney disease, unspecified; E78.5 Hyperlipidemia, unspecified; I34.0 Nonrheumatic mitral (valve) insufficiency; Z96.642 Presence of left artificial hip joint; Z20.822 Contact with and (suspected) exposure to COVID-19; Z96.653 Presence of artificial knee joint, bilateral; D72.829 Elevated white blood cell count, unspecified; I48.91 Unspecified atrial fibrillation; I73.9 Peripheral vascular disease, unspecified; Z79.01 Long term (current) use of anticoagulants; Z85.46 Personal history of malignant neoplasm of prostate; Z86.711 Personal history of pulmonary embolism; Z87.891 Personal history of nicotine dependence; Z90.49 Acquired absence of other specified parts of digestive tract
CPT/HCPCS: 36415; 71045; 71250; 71275; 76604; 76942; 80048; 80053; 80076; 83036; 83615; 83735; 83880; 83986; 84484; 85025; 85610; 85730; 86141; 87040; 87205; 87493; 89051; 93005; 93306; 94640; 96365; 97163; C1729; G0378; J0696; J2543; J3490

== ENCOUNTER 2022-01-18 06:49 | Inpatient (IN) | payer MEDICARE, MEDICAID ==
[~2022-01-18] VITALS: Ht 182.9 cm; Wt 81.7 kg
[~2022-01-18 06:49] MED LIST changes: +ALB5IS NEB; +AMOXTAB OR; +DOXY-286 PO
[2022-01-18 07:55] LABS: Basophils # (auto) 0.1 10 ^3/uL (0-0.2); Eosinophils # (auto) 0.1 10 ^3/uL (0-0.8); Hemoglobin 12.1 g/dL (13.5-17.5); Lymphocytes # (auto) 1.1 10 ^3/uL (0.4-5.4); White Blood Cell 11.5 10^3/uL (4.4-10.8)
[2022-01-18 07:58] LABS: Basophils % (auto) 1.2 % (0.0-2.0); Eosinophils % (auto) 0.7 % (0.0-7.0); Hematocrit 36.2 % (41.0-53.0); Lymphocytes % (auto) 9.5 % (10.0-50.0); Mean Corpuscular Hemoglobin 30.7 pg (28.0-32.0); Mean Corpuscular Hgb Conc. 33.5 g/dL (32.0-36.0); Mean Corpuscular Volume 91.6 fL (80.0-100.0); Monocytes # (auto) 1.1 10 ^3/uL (0-1.3); Neutrophils % (auto) 78.6 % (37.0-80.0); Red Blood Cells 3.95 10^6/uL (4.5-5.90); Red Cell Distribution Width 13.7 % (11.8-14.3)
[2022-01-18 08:09] LABS: Albumin 2.1 g/dL (3.4-5.0); Calcium 9.1 mg/dL (8.5-10.1); Potassium 3.8 mmol/L (3.5-5.1)
[2022-01-18 08:13] LABS: BUN/Creatinine Ratio 20.9; Bilirubin, Total 0.6 mg/dL (0.2-1.0); Total Protein 8.3 g/dL (6.4-8.2)
[2022-01-18] MEDS ORDERED: NITROGLYCERIN 0.4 MG SL TAB SL PRN (10:00)
[2022-01-18] MEDS ORDERED: KETAMINE 50mg/ML 10ml Vial (500mg/10ml) IV ONE (11:08)
[2022-01-18 12:03] LABS: INR 1.36 (0.9-1.15)
[2022-01-18] MEDS ORDERED: ceFAZolin 1GM/50ML 100 ML IV ONE (13:08)
[2022-01-18] MEDS ORDERED: ONDANSETRON HCL 4 MG/2 ML VIAL IV PRN ×2 (13:45→15:15)
[2022-01-18] MEDS ORDERED: VANCOMYCIN PER PHARMACY 0 MG IV SCH (13:45)
[2022-01-18] MEDS ORDERED: DOCUSATE SOD 100 MG CAP PO PRN (13:45)
[2022-01-18] MEDS ORDERED: ACETAMINOPHEN 325 MG TAB PO PRN (13:45)
[2022-01-18] MEDS ORDERED: MORPHINE SULFATE INJ 2 MG/ml SYRG IV PRN (13:45)
[2022-01-18] MEDS ORDERED: LORazepam 0.5 MG TAB PO PRN (13:45)
[2022-01-18] MEDS ORDERED: hydrALAZINE HCL 20 MG/ML VL IV PRN (13:45)
[2022-01-18] MEDS ORDERED: SUCCINYLCHOLINE CHLORIDE 20 MG/ML 10ML VIAL IV ONE (14:08)
[2022-01-18 14:12] VITALS: BP 125/71
[2022-01-18 14:16] LABS: Magnesium 2.3 mg/dL (1.6-2.6); Phosphorus 3.9 mg/dL (2.5-4.90)
[2022-01-18] MEDS ORDERED: LIDOCAINE W/ EPINEPHRINE 1% 20ML VIAL ONE (14:21)
[2022-01-18] MEDS ORDERED: BUPIVACAINE 0.25% INJ 50ML VIAL ONE (14:22)
[2022-01-18] MEDS ORDERED: fentaNYL CITRATE 100 MCG/2 ML VL ONE (14:29)
[2022-01-18] MEDS ORDERED: MIDAZOLAM HCL 2MG/2ML 2ml VIAL (1mg/ml) ONE (14:29)
[2022-01-18] MEDS ORDERED: POVIDONE IODINE 10 % TOPICAL OINT 30GM TOP ONE (15:02)
[2022-01-18] MEDS ORDERED: HYDROmorphone HCL 2 MG/ML VL/or syr IV PRN (15:15)
[2022-01-18] MEDS: ALBUTEROL SULF 2.5 MG/0.5ML(0.5%) NEB SOLN NEB PRN ×2 (17:44→21:38)
[2022-01-18] MEDS: IPRATROPIUM BROM 0.5 MG/2.5ML INH SOL NEB SCH ×2 (17:44→21:38)
[2022-01-18 17:47] VITALS: BP 97/73
[2022-01-18] MEDS: PIPERACILLIN-TAZOB 3.375GM 100 ML IV SCH ×2 (18:26→23:39)
[2022-01-18 20:33] LABS: INR 1.32 (0.9-1.15); Partial Thromboplastin Time 38.1 sec (23.6-33.0)
[2022-01-18 20:34] VITALS: BP 97/73
[2022-01-18] MEDS: CARVEDILOL 3.125 MG TAB PO SCH (21:37)
[2022-01-19] MEDS: ALBUTEROL SULF 2.5 MG/0.5ML(0.5%) NEB SOLN NEB PRN ×3 (01:54→22:16)
[2022-01-19] MEDS: IPRATROPIUM BROM 0.5 MG/2.5ML INH SOL NEB SCH ×6 (01:54→22:16)
[2022-01-19 03:00] LABS: Urine Bacteria FEW /hpf (None Seen); Urine Blood Negative /uL (Negative); Urine Specific Gravity 1.025 (1.001-1.035); Urine WBC 1 /hpf (0 - 3)
[2022-01-19 03:10] LABS: Amphetamine Screen, Urine NEGATIVE (NEGATIVE); Barbiturate Scree,Urine NEGATIVE (NEGATIVE); Benzodiazephine Screen, Urine POSITIVE (NEGATIVE); Cannabinoid Screen, Urine NEGATIVE (NEGATIVE); Cocaine Screen, Urine NEGATIVE (NEGATIVE); Opiate Scree,Urine NEGATIVE (NEGATIVE); Phencyclidine Screen, Urine NEGATIVE (NEGATIVE)
[2022-01-19 05:00] VITALS: BP 99/60
[2022-01-19 05:11] LABS: Basophils # (auto) 0 10 ^3/uL (0-0.2); Eosinophils # (auto) 0.1 10 ^3/uL (0-0.8); Lymphocytes # (auto) 0.6 10 ^3/uL (0.4-5.4)
[2022-01-19 05:12] LABS: Basophils % (auto) 0.3 % (0.0-2.0); Eosinophils % (auto) 0.7 % (0.0-7.0); Hematocrit 33.9 % (41.0-53.0); Hemoglobin 11.7 g/dL (13.5-17.5); Lymphocytes % (auto) 5.7 % (10.0-50.0); Mean Corpuscular Hemoglobin 31.6 pg (28.0-32.0); Mean Corpuscular Hgb Conc. 34.6 g/dL (32.0-36.0); Mean Corpuscular Volume 91.4 fL (80.0-100.0); Monocytes % (auto) 8.8 % (0.0-12.0); Neutrophils # (auto) 9.2 10 ^3/uL (1.6-8.6); Neutrophils % (auto) 84.5 % (37.0-80.0); Red Blood Cells 3.71 10^6/uL (4.5-5.90); Red Cell Distribution Width 13.8 % (11.8-14.3); White Blood Cell 10.9 10^3/uL (4.4-10.8)
[2022-01-19 05:13] LABS: Potassium 3.8 mmol/L (3.5-5.1)
[2022-01-19 05:21] LABS: INR 1.32 (0.9-1.15); Partial Thromboplastin Time 38.2 sec (23.6-33.0)
[2022-01-19 05:35] LABS: Albumin 1.8 g/dL (3.4-5.0); BUN/Creatinine Ratio 16.7; Bilirubin, Total 0.8 mg/dL (0.2-1.0); Calcium 8.6 mg/dL (8.5-10.1); Phosphorus 3.9 mg/dL (2.5-4.90); Total Protein 7.2 g/dL (6.4-8.2); Uric Acid 4.1 mg/dL (3.5-7.2)
[2022-01-19] MEDS: PIPERACILLIN-TAZOB 3.375GM 100 ML IV SCH ×3 (05:46→19:00)
[2022-01-19 08:00] VITALS: BP 107/64
[2022-01-19 09:00] VITALS: BP 107/64
[2022-01-19] MEDS ORDERED: FAMOTIDINE (10MG/ML) 2ML VL IV SCH (10:00)
[2022-01-19] MEDS: VERAPAMIL HCL 40 MG TAB PO SCH (11:06)
[2022-01-19] MEDS: CARVEDILOL 3.125 MG TAB PO SCH ×2 (11:07→21:20)
[2022-01-19 13:00] VITALS: BP 135/70
[2022-01-19] MEDS: GABAPENTIN 100 MG CAP PO SCH (21:19)
[2022-01-19 22:00] VITALS: BP 110/56
[2022-01-20] MEDS: ALBUTEROL SULF 2.5 MG/0.5ML(0.5%) NEB SOLN NEB PRN ×5 (02:08→21:44)
[2022-01-20] MEDS: IPRATROPIUM BROM 0.5 MG/2.5ML INH SOL NEB SCH ×6 (02:08→21:44)
[2022-01-20 05:00] VITALS: BP 103/59
[2022-01-20 05:01] LABS: Basophils # (auto) 0.1 10 ^3/uL (0-0.2); Basophils % (auto) 0.9 % (0.0-2.0); Eosinophils # (auto) 0.2 10 ^3/uL (0-0.8); Eosinophils % (auto) 1.9 % (0.0-7.0); Hematocrit 31.6 % (41.0-53.0); Hemoglobin 11.1 g/dL (13.5-17.5); Lymphocytes # (auto) 1.1 10 ^3/uL (0.4-5.4); Lymphocytes % (auto) 10.9 % (10.0-50.0); Mean Corpuscular Hemoglobin 32.1 pg (28.0-32.0); Mean Corpuscular Hgb Conc. 35.1 g/dL (32.0-36.0); Mean Corpuscular Volume 91.3 fL (80.0-100.0); Monocytes % (auto) 9.2 % (0.0-12.0); Neutrophils % (auto) 77.1 % (37.0-80.0); Red Blood Cells 3.46 10^6/uL (4.5-5.90); Red Cell Distribution Width 13.8 % (11.8-14.3); White Blood Cell 10.4 10^3/uL (4.4-10.8)
[2022-01-20 05:16] LABS: BUN/Creatinine Ratio 16.3; Calcium 8.5 mg/dL (8.5-10.1); Potassium 3.6 mmol/L (3.5-5.1)
[2022-01-20] MEDS: PIPERACILLIN-TAZOB 3.375GM 100 ML IV SCH ×5 (05:47→23:43)
[2022-01-20 08:00] VITALS: BP 101/51
[2022-01-20 09:00] VITALS: BP 118/70
[2022-01-20] MEDS: VERAPAMIL HCL 40 MG TAB PO SCH (10:00)
[2022-01-20] MEDS: CARVEDILOL 3.125 MG TAB PO SCH ×2 (10:00→21:38)
[2022-01-20] MEDS: MORPHINE SULFATE INJ 2 MG/ml SYRG IV PRN ×2 (10:47→19:54)
[2022-01-20] MEDS: GABAPENTIN 100 MG CAP PO SCH ×2 (11:04→21:07)
[2022-01-20] MEDS: DRONEDARONE HCL 400 MG TAB PO SCH ×2 (11:04→21:07)
[2022-01-20] MEDS ORDERED: PROPOFOL 10 MG/ML 20 ML IV ONE (11:06)
[2022-01-20] MEDS ORDERED: FUROSEMIDE 20 MG/2 ML VIAL IV ONE (11:15)
[2022-01-20] MEDS ORDERED: POTASSIUM CHL 20 Meq TABLET PO ONE (11:15)
[2022-01-20 13:00] VITALS: BP 107/62
[2022-01-20] MEDS ORDERED: POTASSIUM CHL 10 Meq TABLET PO ONE (15:30)
[2022-01-20 17:00] VITALS: BP 115/66
[2022-01-20 22:00] VITALS: BP 109/62
[2022-01-21] VITALS (7 sets, daily range): BP systolic 98–117; BP diastolic 52–66
[2022-01-21] MEDS: ALBUTEROL SULF 2.5 MG/0.5ML(0.5%) NEB SOLN NEB PRN ×3 (01:41→21:48)
[2022-01-21] MEDS: IPRATROPIUM BROM 0.5 MG/2.5ML INH SOL NEB SCH ×6 (01:41→21:48)
[2022-01-21] MEDS: PIPERACILLIN-TAZOB 3.375GM 100 ML IV SCH ×3 (05:16→19:25)
[2022-01-21] MEDS: CARVEDILOL 3.125 MG TAB PO SCH ×2 (10:00→21:35)
[2022-01-21] MEDS: VERAPAMIL HCL 40 MG TAB PO SCH (10:00)
[2022-01-21] MEDS: GABAPENTIN 100 MG CAP PO SCH ×2 (10:54→20:58)
[2022-01-21] MEDS: DRONEDARONE HCL 400 MG TAB PO SCH ×2 (10:56→20:59)
[2022-01-21] MEDS: FUROSEMIDE 20 MG/2 ML VIAL IV SCH (10:59)
[2022-01-21] MEDS: POTASSIUM CHL 20 Meq TABLET PO SCH (11:00)
[2022-01-21 11:29] LABS: Basophils # (auto) 0 10 ^3/uL (0-0.2); Basophils % (auto) 0.4 % (0.0-2.0); Eosinophils # (auto) 0.2 10 ^3/uL (0-0.8); Eosinophils % (auto) 2.3 % (0.0-7.0); Hematocrit 30.9 % (41.0-53.0); Hemoglobin 10.6 g/dL (13.5-17.5); Lymphocytes # (auto) 0.8 10 ^3/uL (0.4-5.4); Lymphocytes % (auto) 9.1 % (10.0-50.0); Mean Corpuscular Hemoglobin 31.5 pg (28.0-32.0); Mean Corpuscular Hgb Conc. 34.4 g/dL (32.0-36.0); Mean Corpuscular Volume 91.4 fL (80.0-100.0); Monocytes % (auto) 11.5 % (0.0-12.0); Neutrophils % (auto) 76.7 % (37.0-80.0); Red Blood Cells 3.38 10^6/uL (4.5-5.90); Red Cell Distribution Width 13.8 % (11.8-14.3); White Blood Cell 9.1 10^3/uL (4.4-10.8)
[2022-01-21 11:57] LABS: Albumin 1.6 g/dL (3.4-5.0); BUN/Creatinine Ratio 14.3; Calcium 8.4 mg/dL (8.5-10.1); Potassium 3.8 mmol/L (3.5-5.1)
[2022-01-21 12:00] LABS: Bilirubin, Total 0.5 mg/dL (0.2-1.0); Total Protein 6.9 g/dL (6.4-8.2)
[2022-01-21] MEDS: HYDROcodone-ACET 5/325MG TAB PO PRN (21:00)
[2022-01-22] MEDS: IPRATROPIUM BROM 0.5 MG/2.5ML INH SOL NEB SCH ×4 (02:08→17:59)
[2022-01-22] MEDS: ALBUTEROL SULF 2.5 MG/0.5ML(0.5%) NEB SOLN NEB PRN (02:08)
[2022-01-22] MEDS: PIPERACILLIN-TAZOB 3.375GM 100 ML IV SCH ×3 (02:53→13:07)
[2022-01-22 05:00] VITALS: BP 104/63
[2022-01-22] MEDS: HYDROcodone-ACET 5/325MG TAB PO PRN ×2 (08:27→14:38)
[2022-01-22 09:00] VITALS: BP 99/53
[2022-01-22] MEDS ORDERED: CATHFLO XX ONE (10:00)
[2022-01-22] MEDS: VERAPAMIL HCL 40 MG TAB PO SCH (10:00)
[2022-01-22] MEDS ORDERED: ALTEPLASE XX ONE (10:00)
[2022-01-22] MEDS ORDERED: SODIUM CHL 0.9% XX ONE (10:00)
[2022-01-22] MEDS: FUROSEMIDE 20 MG/2 ML VIAL IV SCH ×2 (10:24→10:29)
[2022-01-22] MEDS: CARVEDILOL 3.125 MG TAB PO SCH (10:26)
[2022-01-22] MEDS: POTASSIUM CHL 20 Meq TABLET PO SCH ×2 (10:27→10:28)
[2022-01-22] MEDS: GABAPENTIN 100 MG CAP PO SCH ×2 (10:28→10:29)
[2022-01-22 13:00] VITALS: BP 104/59
[2022-01-22] MEDS: DRONEDARONE HCL 400 MG TAB PO SCH (13:00)
[2022-01-22 17:00] VITALS: BP 105/60
== END 2022-01-22 18:40 | disposition short-term general hospital (02) | DRG 177 ==
LOC: ER 06:49 → EDBD 06:49 → TELE 10:05 → TELE-CENTR 16:16
PROVIDERS: ADMIT Hospitalist; ATTEND Internal Medicine
PROC: 0W9B30Z Drainage of Left Pleural Cavity with Drainage Device, Percutaneous Approach (ICD-10-PCS; principal; 2022-01-18 14:10)
DX: J86.9 Pyothorax without fistula (principal); E43 Unspecified severe protein-calorie malnutrition; J18.9 Pneumonia, unspecified organism; J96.21 Acute and chronic respiratory failure with hypoxia; I50.31 Acute diastolic (congestive) heart failure; C34.90 Malignant neoplasm of unspecified part of unspecified bronchus or lung; I13.0 Hypertensive heart and chronic kidney disease with heart failure and stage 1 through stage 4 chronic kidney disease, or unspecified chronic kidney disease; D68.9 Coagulation defect, unspecified; I31.3 Pericardial effusion (noninflammatory); J98.11 Atelectasis; D68.69 Other thrombophilia; J91.0 Malignant pleural effusion; Z96.642 Presence of left artificial hip joint; M45.9 Ankylosing spondylitis of unspecified sites in spine; Z20.822 Contact with and (suspected) exposure to COVID-19; R16.0 Hepatomegaly, not elsewhere classified; E78.5 Hyperlipidemia, unspecified; E88.09 Other disorders of plasma-protein metabolism, not elsewhere classified; I34.0 Nonrheumatic mitral (valve) insufficiency; I45.10 Unspecified right bundle-branch block; I48.91 Unspecified atrial fibrillation; I73.9 Peripheral vascular disease, unspecified; M41.9 Scoliosis, unspecified; N18.9 Chronic kidney disease, unspecified; Z79.01 Long term (current) use of anticoagulants; Z85.46 Personal history of malignant neoplasm of prostate; Z86.711 Personal history of pulmonary embolism; Z90.49 Acquired absence of other specified parts of digestive tract
CPT/HCPCS: 36415; 36600; 71045; 71260; 80048; 80053; 80061; 80307; 81001; 82550; 82728; 82805; 83615; 83690; 83735; 83880; 84100; 84443; 84484; 84550; 85025; 85379; 85610; 85652; 85730; 86141; 86850; 86900; 86901; 87040; 87086; 93005; 94640; 96365; G0378; J0330; J0690; J2250; J2543; J2704; J3490

== ENCOUNTER 2023-02-05 06:14 | Inpatient (IN) | payer MEDICARE, OTHER ==
[~2023-02-05] VITALS: Ht 170.2 cm; Wt 74.3 kg
[2023-02-05 07:27] LABS: Basophils # (auto) 0.1 10 ^3/uL (0-0.2); Basophils % (auto) 0.9 % (0.0-2.0); Eosinophils # (auto) 0.2 10 ^3/uL (0-0.8); Eosinophils % (auto) 2.4 % (0.0-7.0); Hemoglobin 11.4 g/dL (13.5-17.5); Lymphocytes # (auto) 1.4 10 ^3/uL (0.4-5.4); Lymphocytes % (auto) 19.2 % (10.0-50.0); Mean Corpuscular Hemoglobin 28.6 pg (28.0-32.0); Mean Corpuscular Hgb Conc. 33.6 g/dL (32.0-36.0); Mean Corpuscular Volume 85.2 fL (80.0-100.0); Monocytes # (auto) 0.7 10 ^3/uL (0-1.3); Monocytes % (auto) 9.8 % (0.0-12.0); Neutrophils # (auto) 4.8 10 ^3/uL (1.6-8.6); Neutrophils % (auto) 67.7 % (37.0-80.0); Nucleated Red Blood Cells % 0.1 %; Red Blood Cells 3.99 10^6/uL (4.5-5.90); Red Cell Distribution Width 19.9 % (11.8-14.3); White Blood Cell 7.1 10^3/uL (4.4-10.8)
[2023-02-05 07:53] LABS: INR 1.94 (0.9-1.15); Partial Thromboplastin Time 56.1 sec (24.6-33.4)
[2023-02-05 08:00] LABS: Albumin 2.5 g/dL (3.4-5.0); Calcium 9.1 mg/dL (8.5-10.1); Potassium 3.2 mmol/L (3.5-5.1)
[2023-02-05 08:08] LABS: BUN/Creatinine Ratio 17.2 (10.0-20.0); Bilirubin, Total 0.5 mg/dL (0.2-1.0)
[2023-02-05] MEDS ORDERED: ONDANSETRON HCL 4 MG/2 ML VIAL IV PRN (10:45)
[2023-02-05] MEDS ORDERED: POTASSIUM EFFERVESENT TAB 25 MEQ GT ONE (10:45)
[2023-02-05] MEDS ORDERED: DOCUSATE SOD 100 MG CAP PO PRN (10:45)
[2023-02-05] MEDS ORDERED: MORPHINE SULFATE INJ 2 MG/ml SYRG IV PRN (10:45)
[2023-02-05] MEDS: SODIUM CHLORIDE 0.9% 1,000 ML IV SCH (10:45)
[2023-02-05] MEDS: AMPICILLIN & SULBACTAM SODIUM 3 GM in SODIUM CHL 0.9% 100 ML IV SCH ×2 (17:50→23:21)
[2023-02-05] MEDS: CARVEDILOL 3.125 MG TAB PO SCH (22:00)
[2023-02-05] MEDS: DRONEDARONE HCL 400 MG TAB PO SCH (22:00)
[2023-02-05] MEDS: NEOMYCIN-BACITRACIN-POLYM 15GM TOP OINT TOP SCH (22:00)
[2023-02-05] MEDS: OXYMETAZOLINE HCL 0.05 % NASAL SPRAY 15ML EACHNOSTRI SCH (22:00)
[2023-02-06] MEDS: SODIUM CHLORIDE 0.9% 1,000 ML IV SCH ×2 (03:25→20:05)
[2023-02-06 06:10] LABS: Basophils # (auto) 0.1 10 ^3/uL (0-0.2); Basophils % (auto) 1.1 % (0.0-2.0); Eosinophils # (auto) 0.2 10 ^3/uL (0-0.8); Eosinophils % (auto) 3.7 % (0.0-7.0); Hematocrit 29.1 % (41.0-53.0); Hemoglobin 9.6 g/dL (13.5-17.5); Lymphocytes # (auto) 1.2 10 ^3/uL (0.4-5.4); Lymphocytes % (auto) 20.4 % (10.0-50.0); Mean Corpuscular Volume 84.8 fL (80.0-100.0); Monocytes # (auto) 0.6 10 ^3/uL (0-1.3); Monocytes % (auto) 10.6 % (0.0-12.0); Neutrophils # (auto) 3.9 10 ^3/uL (1.6-8.6); Neutrophils % (auto) 64.2 % (37.0-80.0); Red Blood Cells 3.43 10^6/uL (4.5-5.90); Red Cell Distribution Width 19.9 % (11.8-14.3)
[2023-02-06 06:29] LABS: Potassium 3.2 mmol/L (3.5-5.1)
[2023-02-06 06:37] LABS: INR 1.51 (0.9-1.15)
[2023-02-06 06:41] LABS: Albumin 1.9 g/dL (3.4-5.0); BUN/Creatinine Ratio 18.3 (10.0-20.0); Bilirubin, Total 0.7 mg/dL (0.2-1.0); Total Protein 6.8 g/dL (6.4-8.2)
[2023-02-06] MEDS: AMPICILLIN & SULBACTAM SODIUM 3 GM in SODIUM CHL 0.9% 100 ML IV SCH ×4 (08:26→23:32)
[2023-02-06 08:45] VITALS: BP 134/64
[2023-02-06 09:00] VITALS: BP 130/75
[2023-02-06] MEDS: VERAPAMIL HCL 40 MG TAB PO SCH (10:00)
[2023-02-06] MEDS: NEOMYCIN-BACITRACIN-POLYM 15GM TOP OINT TOP SCH ×2 (10:00→22:00)
[2023-02-06] MEDS: OXYMETAZOLINE HCL 0.05 % NASAL SPRAY 15ML EACHNOSTRI SCH ×2 (10:00→22:00)
[2023-02-06] MEDS: DRONEDARONE HCL 400 MG TAB PO SCH ×2 (10:00→21:06)
[2023-02-06] MEDS ORDERED: POTASSIUM EFFERVESENT TAB 25 MEQ GT ONE (10:30)
[2023-02-06] MEDS: CHOLECALCIFEROL (VITD3) 2,000 UNIT CAP/TAB PO SCH (11:05)
[2023-02-06] MEDS: CARVEDILOL 3.125 MG TAB PO SCH ×2 (11:08→21:13)
[2023-02-06 12:00] VITALS: BP 136/75
[2023-02-06 16:00] VITALS: BP 121/62
[2023-02-06 22:00] VITALS: BP 124/70
[2023-02-07] MEDS ORDERED: TEMAZEPAM 15 MG CAP PO ONE (00:30)
[2023-02-07] MEDS: AMPICILLIN & SULBACTAM SODIUM 3 GM in SODIUM CHL 0.9% 100 ML IV SCH ×4 (04:55→22:12)
[2023-02-07 05:00] VITALS: BP 117/79
[2023-02-07 06:04] LABS: Basophils # (auto) 0.1 10 ^3/uL (0-0.2); Eosinophils # (auto) 0.3 10 ^3/uL (0-0.8); Eosinophils % (auto) 5.2 % (0.0-7.0); Hematocrit 29.5 % (41.0-53.0); Hemoglobin 9.6 g/dL (13.5-17.5); Lymphocytes # (auto) 1.6 10 ^3/uL (0.4-5.4); Mean Corpuscular Hgb Conc. 32.7 g/dL (32.0-36.0); Mean Corpuscular Volume 85.6 fL (80.0-100.0); Monocytes # (auto) 0.7 10 ^3/uL (0-1.3); Monocytes % (auto) 10.3 % (0.0-12.0); Neutrophils # (auto) 3.9 10 ^3/uL (1.6-8.6); Neutrophils % (auto) 59.5 % (37.0-80.0); Nucleated Red Blood Cells % 0.1 %; Red Blood Cells 3.44 10^6/uL (4.5-5.90); White Blood Cell 6.6 10^3/uL (4.4-10.8)
[2023-02-07 06:19] LABS: Red Cell Distribution Width 20.5 % (11.8-14.3)
[2023-02-07 06:33] LABS: BUN/Creatinine Ratio 16.7 (10.0-20.0); Calcium 8.9 mg/dL (8.5-10.1); Potassium 3.5 mmol/L (3.5-5.1)
[2023-02-07] MEDS: OXYMETAZOLINE HCL 0.05 % NASAL SPRAY 15ML EACHNOSTRI SCH ×2 (08:51→20:42)
[2023-02-07 09:00] VITALS: BP 131/62
[2023-02-07] MEDS: VERAPAMIL HCL 40 MG TAB PO SCH (09:03)
[2023-02-07] MEDS: DRONEDARONE HCL 400 MG TAB PO SCH ×2 (09:05→20:42)
[2023-02-07] MEDS: CHOLECALCIFEROL (VITD3) 2,000 UNIT CAP/TAB PO SCH (09:05)
[2023-02-07] MEDS: CARVEDILOL 3.125 MG TAB PO SCH ×2 (09:05→20:42)
[2023-02-07] MEDS: NEOMYCIN-BACITRACIN-POLYM 15GM TOP OINT TOP SCH ×2 (09:09→20:51)
[2023-02-07 12:08] LABS: INR 1.35 (0.9-1.15)
[2023-02-07 13:00] VITALS: BP 104/54
[2023-02-07] MEDS: SODIUM CHLORIDE 0.9% 1,000 ML IV SCH (13:07)
[2023-02-07 17:00] VITALS: BP 118/58
[2023-02-07] MEDS ORDERED: MONT-8 PO ×2 (19:52→23:01)
[2023-02-07] MEDS ORDERED: TAMS0.4C36 PO (23:01)
[2023-02-08 00:03] VITALS: BP 122/66
[2023-02-08] MEDS: AMPICILLIN & SULBACTAM SODIUM 3 GM in SODIUM CHL 0.9% 100 ML IV SCH ×2 (05:00→10:26)
[2023-02-08 05:18] VITALS: BP 125/71
[2023-02-08] MEDS: SODIUM CHLORIDE 0.9% 1,000 ML IV SCH (05:50)
[2023-02-08 06:25] LABS: Basophils # (auto) 0.1 10 ^3/uL (0-0.2); Basophils % (auto) 0.8 % (0.0-2.0); Eosinophils # (auto) 0.3 10 ^3/uL (0-0.8); Eosinophils % (auto) 4.4 % (0.0-7.0); Hematocrit 30.3 % (41.0-53.0); Hemoglobin 9.9 g/dL (13.5-17.5); Lymphocytes # (auto) 1.5 10 ^3/uL (0.4-5.4); Lymphocytes % (auto) 19.8 % (10.0-50.0); Mean Corpuscular Hemoglobin 27.9 pg (28.0-32.0); Mean Corpuscular Hgb Conc. 32.6 g/dL (32.0-36.0); Mean Corpuscular Volume 85.6 fL (80.0-100.0); Monocytes # (auto) 0.8 10 ^3/uL (0-1.3); Red Blood Cells 3.54 10^6/uL (4.5-5.90); White Blood Cell 7.7 10^3/uL (4.4-10.8)
[2023-02-08 06:28] LABS: Red Cell Distribution Width 20.7 % (11.8-14.3)
[2023-02-08 06:50] LABS: Calcium 8.2 mg/dL (8.5-10.1); Potassium 3.8 mmol/L (3.5-5.1)
[2023-02-08 09:00] VITALS: BP 130/79
[2023-02-08] MEDS ORDERED: MONTELUKAST SODIUM 10 MG TAB PO SCH (10:00)
[2023-02-08] MEDS ORDERED: APIX2.5T PO (10:11)
[2023-02-08] MEDS ORDERED: AMOX500T86 PO ×2 (10:13)
[2023-02-08] MEDS: OXYMETAZOLINE HCL 0.05 % NASAL SPRAY 15ML EACHNOSTRI SCH (10:23)
[2023-02-08] MEDS: CHOLECALCIFEROL (VITD3) 2,000 UNIT CAP/TAB PO SCH (10:29)
[2023-02-08] MEDS: DRONEDARONE HCL 400 MG TAB PO SCH (10:30)
[2023-02-08] MEDS: CARVEDILOL 3.125 MG TAB PO SCH (10:30)
[2023-02-08] MEDS: VERAPAMIL HCL 40 MG TAB PO SCH (10:34)
[2023-02-08] MEDS: NEOMYCIN-BACITRACIN-POLYM 15GM TOP OINT TOP SCH (10:35)
[2023-02-08 13:00] VITALS: BP 115/65
[2023-02-08] MEDS ORDERED: TAMSULOSIN HYDROCHLORIDE 0.4 MG CAP PO SCH (18:00)
== END 2023-02-08 16:31 | disposition home health service (06) | DRG 813 ==
LOC: ER 06:14 → EDBD 06:14 → TELE 10:36 → TELE-WESTW 02-06 08:45
PROVIDERS: ADMIT Nurse Practitioner Family; ATTEND Internal Medicine Pulmonary Disease
DX: D68.32 Hemorrhagic disorder due to extrinsic circulating anticoagulants (principal); I21.4 Non-ST elevation (NSTEMI) myocardial infarction; J15.6 Pneumonia due to other Gram-negative bacteria; D68.59 Other primary thrombophilia; J98.11 Atelectasis; I50.42 Chronic combined systolic (congestive) and diastolic (congestive) heart failure; I48.20 Chronic atrial fibrillation, unspecified; I13.0 Hypertensive heart and chronic kidney disease with heart failure and stage 1 through stage 4 chronic kidney disease, or unspecified chronic kidney disease; D62 Acute posthemorrhagic anemia; R04.2 Hemoptysis; E44.0 Moderate protein-calorie malnutrition; T45.515A Adverse effect of anticoagulants, initial encounter; R04.0 Epistaxis; E87.6 Hypokalemia; E78.5 Hyperlipidemia, unspecified; M45.9 Ankylosing spondylitis of unspecified sites in spine; N18.9 Chronic kidney disease, unspecified; Z79.01 Long term (current) use of anticoagulants; Z98.1 Arthrodesis status; Z98.61 Coronary angioplasty status; Z86.711 Personal history of pulmonary embolism; Z85.46 Personal history of malignant neoplasm of prostate; Z90.49 Acquired absence of other specified parts of digestive tract; Z68.25 Body mass index [BMI] 25.0-25.9, adult
CPT/HCPCS: 36415; 71045; 71250; 76604; 80048; 80053; 83880; 84484; 85025; 85610; 85730; 93005; 93306; 93971; 99291; G0378